=== PATIENT | male | born 1955 ===

== ENCOUNTER 2017-09-30 08:00 | Outpatient (RCR) | payer BC ==
[~2017-09-30 08:00] MED LIST: APIX5TAB PO; ATEN-1 PO; FLE100 FT; LISI20TA29 PO; METO50TA19 PO; MINO100C27 PO
[2017-09-30 08:09] VITALS: BP 124/93
--- NOTE | 2017-09-30 08:11 | ONC Progress Note - NP.Halsey ---
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 CBC was drawn today. Patient continues to do very well. Patient reports that due to the snow he has not been able to go up hiking but is getting prepared for nicer weather. He is remaining active and denies any difficulty with physical activity. Patient recently followed with primary care with cholesterol labs and a physical. Patient reports that he is doing well. Patient has not required any recent phlebotomy. Hematocrit today is 53.1. No changes in medications, these were recently refilled by primary care Problem List (1) Secondary erythrocytosis Oncology History He is a 62-year-old male who moved to [place] from [place]. He had a history of atrial fibrillation, polycythemia vera and hypertension, and he saw his primary care provider, Allison Constantino PA-C, who referred him to establish care for his polycythemia vera. Patient did not bring documentation of the confirmation of the diagnosis of polycythemia vera, but the patient had CBC results done on September 09, 2016 which showed white count 3.9, hemoglobin 19.6, hematocrit 57%, platelets 145,000. He has not been phlebotomized recently. His JAK2 mutation analysis came back negative for V617F mutation and Exon 12 mutation. His erythropoietin level was normal at 23, consistent with secondary erythrocytosis. Psychosocial History Social History The patient is with four children, three from his ex- and one from his recent . He is retired from [employer]. He quit smoking at age of [age] after eleven years of two packs a day. He drinks about a 6-pack of beer per week. Denies abuse of illicit drug Medications and Allergies Reported Medications Flecainide Acetate (FLECAINIDE ACETATE) 100 Mg Tab, 100 MG FT, TAB 06/30/17 Metoprolol Succinate (METOPROLOL SUCCINATE) 50 Mg Tab.er.24h, 1 TAB PO QDAY, TAB 06/30/17 Minocycline Hcl (MINOCYCLINE HCL) 100 Mg Capsule, 100 MG PO DAILY, CAPSULE 09/10/16 Lisinopril (LISINOPRIL) 20 Mg Tablet, 20 MG PO DAILY, TAB 09/10/16 Apixaban (ELIQUIS) 5 Mg Tablet, 5 MG PO BID 1/26/17 Review of System/Physical Exam Review of Systems All Systems Reviewed/Normal: Yes, Except as Noted Skin: Positive for Skin Rash (patient recently followed with dermatology and has a steroid ointment for discoloration of the skin on the right lower extremity.) Physical Exam Vital Signs Temperature: 98.6 Pulse: 74 BP Systolic: 125 BP Diastolic: 83 Respiratory Rate: 16 O2 SAT: 94 O2 Delivery: Height (inches) 68.21 Weight lb: Weight oz: Weight Kg (Allen): Pain: 0 ECOG Score: 0 General: Stable, Well Developed, Well Nourished, Not In Acute Distress HEENT: No Trauma Lungs: Clear to Auscultation Heart: Regular Rate, Regular Rhythm, No Gallops Abdomen: Other (bowel sounds are active) Extremities: No Cyanosis, No Clubbing, No Edema Psychiatric: Mood appears normal, Affect appears normal Skin: Other (hyperpigmentation in the right lower extremity probably related to poor venous stasis) Diagnostic Studies Diagnostic Studies Laboratory Item Value Date Time White Blood Count 6.3 k/uL 09/30/17 0807 Red Blood Count 5.80 M/uL H 09/30/17 0807 Hemoglobin 18.2 g/dL H 09/30/17 0807 Hematocrit 53.1 % H 09/30/17 0807 Assessment and Plan Assessment & Plan 1. Secondary erythrocytosis given the JAK2 mutation analysis came back negative and the erythropoietin level was normal at 23. Target for phlebotomy is hematocrit above or equal to 55%. Hematocrit is 53.1, hemoglobin is 18.2, white cell count is 6.3 today. No phlebotomy is planned today. Patient will follow again in 4 months with CBC at that time. 2. Atrial fibrillation on Eliquis. 3. Hypertension on treatment. Current medications with metoprolol and flecainide 4. Right lower extremity poor venous stasis. Patient is followed with dermatology and has a steroid cream to use as needed. Patient may benefit from compression stockings for further prevention. This was discussed today. PLAN 1. Continue followup in 4 months. 2. Consider phlebotomy if hematocrit is at or above 55%. 3. Patient is to return in three months with CBC. 4. Patient is to contact us for any new concerns or complaints. I personally spent a total of 20 minutes. Of that 15 minutes was counseling/ coordination of patient's care. See my note above for details. Copies to: ALLISON CONSTANTINO PA-C, NANCY J TIRE RECAPPING MACHINE OPERATOR-BC, ONC Sep 30, 2017 08:11
[2017-09-30 08:19] LABS: PLATELET COUNT, AUTOMATED 190 K/uL (150-450)
== END 2017-10-01 13:58 | disposition home or self-care (01) ==
LOC: SPU 08:00
PROVIDERS: ATTEND Internal Medicine Hematology
DX: D75.1 Secondary polycythemia (principal); I48.91 Unspecified atrial fibrillation; Z79.01 Long term (current) use of anticoagulants; I10 Essential (primary) hypertension
CPT/HCPCS: 36415; 85025; 99212

== ENCOUNTER 2018-03-04 08:00 | Outpatient (RCR) | payer BC, MEDICARE ==
[2018-03-04 08:23] VITALS: BP 135/93
[2018-03-04 08:25] VITALS: BP 138/93
[2018-03-04 08:26] LABS: PLATELET COUNT, AUTOMATED 170 K/uL (150-450)
--- NOTE | 2018-03-04 13:50 | [facility] ONCOLOGY NOTE ---
EVENT DATE: March 04, 2018 DIAGNOSIS 1. Secondary erythrocytosis. 2. Atrial fibrillation, on Eliquis. 3. Hypertension. CHIEF COMPLAINT Patient is here today for followup of his secondary erythrocytosis. HEMATOLOGY HISTORY The patient is a 63-year-old male who moved to [place] recently. The patient had a history of atrial fibrillation, polycythemia vera and hypertension, and he saw his primary care provider, Polina Constantino PA-C, who referred him to establish care for his polycythemia vera. I did not have any documentation of the confirmation of the diagnosis of polycythemia vera, but the patient had CBC results done on September 09, 2016 which showed white count 3.9, hemoglobin 19.6, hematocrit 57%, platelets 145,000. As per patient, his last phlebotomy session was about two weeks ago. He denies any constitutional symptoms. His JAK2 mutation analysis came back negative for V617F mutation and Exon 12 mutation. His erythropoietin level was normal at 23, consistent with secondary erythrocytosis. HISTORY OF PRESENT ILLNESS Patient is here today for followup of his secondary erythrocytosis. Patient is doing very well currently. He denies any complaints at the moment. PAST MEDICAL HISTORY 1. Polycythemia vera. 2. Atrial fibrillation. 3. Hypertension. PAST SURGICAL HISTORY Herniorrhaphy. FAMILY HISTORY Father with lung cancer. SOCIAL HISTORY The patient is with four children, three from his ex- and one from his recent . He is retired from [employer]. He quit smoking at age of [age] after eleven years of two packs a day. He drinks about a 6-pack of beer occasionally per week. Denies abuse of illicit drugs. CURRENT MEDICATIONS 1. Minocycline 100 mg daily. 2. Lisinopril 20 mg daily. 3. Eliquis 5 mg twice daily. 4. Atenolol 100 mg daily. ALLERGIES NSAIDS and ASPIRIN which cause skin rash. REVIEW OF SYSTEMS CONSTITUTIONAL: No appetite or weight change. No fever, chills or sweating. No recent infection. HEENT: Ears: No tinnitus or hearing problem. Nose: No nasal discharge or epistaxis. Throat: No sore throat or mouth ulcers. Eyes: No diplopia or visual changes. RESPIRATORY: No shortness of breath. No cough, expectoration or hemoptysis. CARDIOVASCULAR: No chest pain, orthopnea, or paroxysmal nocturnal dyspnea (PND) . No edema. No palpitations. GASTROINTESTINAL: No nausea or vomiting. No diarrhea or constipation. No change in bowel movements. No heartburn or swallowing difficulties. No abdominal pain. No jaundice. No hematemesis, melena or rectal bleeding. GENITOURINARY: No hematuria or dysuria. MUSCULOSKELETAL: No pain in the muscles, joints or bones. NEUROLOGICAL: No tingling or numbness in the hands or feet. No headaches or convulsions. HEMATOLOGIC/LYMPHATIC: No bleeding or easy bruising. No weakness or fatigued. No enlarged lymph nodes. SKIN: No skin rash or lumps. PSYCHIATRIC: No anxiety or depression. PHYSICAL EXAMINATION GENERAL: Looks stable. Well-developed, well-nourished, and in no acute distress. VITAL SIGNS: Blood pressure 135/93, pulse 69 per minute, respirations 16 per minute, temperature 98, pulse oximetry 93% on room air. HEENT: Head: Atraumatic. No sinus tenderness to palpation. Eyes: No icterus or conjunctivitis. Mouth and throat: No oral thrush or mucositis. NECK: Supple. No cervical or supraclavicular lymphadenopathy. LUNGS: Clear to auscultation and percussion bilaterally. HEART: Regular rate and rhythm. No gallops, murmurs, clicks or rubs. ABDOMEN: Soft and lax. No tenderness. No hepatosplenomegaly. No masses. EXTREMITIES: No cyanosis, clubbing or edema. LYMPHATICS: No peripheral lymphadenopathy. NEUROLOGICAL: Conscious, alert and oriented times three. No focal motor or sensory deficits. PSYCHIATRIC: Mood and affect appear normal. SKIN: No skin rash, bruise or purpuric eruption. DIAGNOSTIC DATA CBC showed white count 4.9, hemoglobin 17.8, hematocrit 51.5, platelets 170,000. ASSESSMENT 1. Secondary erythrocytosis, given that JAK2 mutation analysis came back negative and the erythropoietin level was normal at 23. The target for phlebotomy is hematocrit above 55%. His current hematocrit is 51.5%. I am planing to continue followup. I will see him again in four months with CBC. I am planning to phlebotomize 500 mL blood whenever his hematocrit is above 55%. 2. Atrial fibrillation on Eliquis. 3. Hypertension on treatment. PLAN 1. Continue followup. 2. Consider phlebotomy if hematocrit is above 55%. 3. Patient is to return in four months with CBC. 4. Patient to contact us for any new concerns or complaints. ANOOP
== END 2018-03-11 09:35 | disposition home or self-care (01) ==
LOC: SPU 08:00
PROVIDERS: ATTEND Internal Medicine Hematology
DX: D75.1 Secondary polycythemia (principal); I48.91 Unspecified atrial fibrillation; I10 Essential (primary) hypertension; Z79.01 Long term (current) use of anticoagulants; Z79.899 Other long term (current) drug therapy; Z87.891 Personal history of nicotine dependence
CPT/HCPCS: 36415; 85025; G0463; 99212

== ENCOUNTER 2018-06-30 08:00 | Outpatient (RCR) | payer MEDICARE ==
[2018-06-30 08:21] VITALS: BP 128/82
[2018-06-30 08:21] LABS: PLATELET COUNT, AUTOMATED 169 K/uL (150-450)
[2018-06-30 09:03] VITALS: BP 144/82
--- NOTE | 2018-06-30 09:55 | [facility] ONCOLOGY NOTE ---
EVENT DATE: June 30, 2018 DIAGNOSIS 1. Secondary erythrocytosis. 2. Atrial fibrillation, on Eliquis. 3. Hypertension. CHIEF COMPLAINT Patient is here today for followup of his secondary erythrocytosis. HEMATOLOGY HISTORY The patient is a 63-year-old male who moved to [place] recently. The patient had a history of atrial fibrillation, polycythemia vera and hypertension, and he saw his primary care provider, Polina Constantino PA-C, who referred him to establish care for his polycythemia vera. I did not have any documentation of the confirmation of the diagnosis of polycythemia vera, but the patient had CBC results done on September 09, 2016 which showed white count 3.9, hemoglobin 19.6, hematocrit 57%, platelets 145,000. As per patient, his last phlebotomy session was about two weeks ago. He denies any constitutional symptoms. His JAK2 mutation analysis came back negative for V617F mutation and Exon 12 mutation. His erythropoietin level was normal at 23, consistent with secondary erythrocytosis. HISTORY OF PRESENT ILLNESS Patient is here today for followup of his secondary erythrocytosis. He is doing fine currently except for some pain in his left knee, resolved with Tylenol. PAST MEDICAL HISTORY 1. Polycythemia vera. 2. Atrial fibrillation. 3. Hypertension. PAST SURGICAL HISTORY Herniorrhaphy. FAMILY HISTORY Father with lung cancer. SOCIAL HISTORY The patient is with four children, three from his ex- and one from his recent . He is retired from [employer]. He quit smoking at age of [age] after eleven years of two packs a day. He drinks about a 6-pack of beer occasionally per week. Denies abuse of illicit drugs. CURRENT MEDICATIONS 1. Minocycline 100 mg daily. 2. Lisinopril 20 mg daily. 3. Eliquis 5 mg twice daily. 4. Atenolol 100 mg daily. ALLERGIES NSAIDS and ASPIRIN which cause skin rash. REVIEW OF SYSTEMS CONSTITUTIONAL: No appetite or weight change. No fever, chills or sweating. No recent infection. HEENT: Ears: No tinnitus or hearing problem. Nose: No nasal discharge or epistaxis. Throat: No sore throat or mouth ulcers. Eyes: No diplopia or visual changes. RESPIRATORY: No shortness of breath. No cough, expectoration or hemoptysis. CARDIOVASCULAR: No chest pain, orthopnea, or paroxysmal nocturnal dyspnea (PND). No edema. No palpitations. GASTROINTESTINAL: No nausea or vomiting. No diarrhea or constipation. No change in bowel movements. No heartburn or swallowing difficulties. No abdominal pain. No jaundice. No hematemesis, melena or rectal bleeding. GENITOURINARY: No hematuria or dysuria. MUSCULOSKELETAL: Patient has pain in his left knee. NEUROLOGICAL: No tingling or numbness in the hands or feet. No headaches or convulsions. HEMATOLOGIC/LYMPHATIC: No bleeding or easy bruising. No weakness or fatigued. No enlarged lymph nodes. SKIN: No skin rash or lumps. PSYCHIATRIC: No anxiety or depression. PHYSICAL EXAMINATION GENERAL: Looks stable. Well-developed, well-nourished, and in no acute distress. VITAL SIGNS: Blood pressure 127/82, pulse 78 per minute, respirations 16 per minute, temperature 98, pulse oximetry 93% on room air. HEENT: Head: Atraumatic. No sinus tenderness to palpation. Eyes: No icterus or conjunctivitis. Mouth and throat: No oral thrush or mucositis. NECK: Supple. No cervical or supraclavicular lymphadenopathy. LUNGS: Clear to auscultation and percussion bilaterally. HEART: Regular rate and rhythm. No gallops, murmurs, clicks or rubs. ABDOMEN: Soft and lax. No tenderness. No hepatosplenomegaly. No masses. EXTREMITIES: No cyanosis, clubbing or edema. LYMPHATICS: No peripheral lymphadenopathy. NEUROLOGICAL: Conscious, alert and oriented times three. No focal motor or sensory deficits. PSYCHIATRIC: Mood and affect appear normal. SKIN: No skin rash, bruise or purpuric eruption. DIAGNOSTIC DATA CBC showed white count 5,000, hemoglobin 18.3, hematocrit 54.1, platelets 169,000. ASSESSMENT 1. Secondary erythrocytosis given that JAK2 mutation analysis came back negative and the erythropoietin level was normal at 23. The target for phlebotomy is hematocrit above 55%. His current hematocrit is 54.1%, on the rise. I am planing to phlebotomize 500 mL this time and I will see him again in six months with CBC at that time. 2. Atrial fibrillation, on Eliquis. 3. Hypertension, on treatment. PLAN 1. Phlebotomize 500 mL of blood. 2. Patient to return in six months with CBC. 3. Patient to contact us for any new concerns or complaints. MTDD
== END 2018-07-13 11:08 | disposition home or self-care (01) ==
LOC: SPU 08:00
PROVIDERS: ATTEND Internal Medicine Hematology
DX: D75.1 Secondary polycythemia (principal); I48.91 Unspecified atrial fibrillation; I10 Essential (primary) hypertension; Z79.01 Long term (current) use of anticoagulants; Z79.899 Other long term (current) drug therapy; Z87.891 Personal history of nicotine dependence
CPT/HCPCS: 85025; 99195; G0463; 99212

== ENCOUNTER 2018-12-27 08:18 | Outpatient (RCR) | payer MEDICARE ==
[2018-12-27 09:27] VITALS: BP 111/81
[2018-12-27 09:34] LABS: PLATELET COUNT, AUTOMATED 177 K/uL (150-450)
--- NOTE | 2018-12-27 12:47 | ONCOLOGY FOLLOW UP NOTE ---
EVENT DATE: December 27, 2018 DIAGNOSES 1. Secondary erythrocytosis. 2. Atrial fibrillation, on Eliquis. 3. Hypertension. CHIEF COMPLAINT Patient is here today for followup of his secondary erythrocytosis. HEMATOLOGY HISTORY The patient is a 63-year-old male who moved to [place] recently. The patient had a history of atrial fibrillation, polycythemia vera and hypertension, and he saw his primary care provider, Polina Constantino PA-C, who referred him to establish care for his polycythemia vera. I did not have any documentation of the confirmation of the diagnosis of polycythemia vera, but the patient had CBC results done on September 09, 2016 which showed white count 3.9, hemoglobin 19.6, hematocrit 57%, platelets 145,000. JAK2 mutation analysis came back negative for V617F mutation and Exon 12 mutation. Erythropoietin level was normal at 23, consistent with secondary erythrocytosis. He was last seen in June, six months ago. Patient's last phlebotomy was done in June 2018. HISTORY OF PRESENT ILLNESS Mr. Chand is here today for ongoing followup for his secondary erythrocytosis. He follows up semiannually. He reports that overall he is doing well. He last had a phlebotomy six months ago, June 2018. He reports that typically he consent when he needs phlebotomy as he usually becomes much more tired and sluggish when his hematocrit levels increase. He remains on Eliquis twice daily for his atrial fibrillation. He reports recent cardiac ablation approximately three months ago with Dr. Lyles in Cardiology. Patient reports that since that time from a hematologic standpoint has been doing well, although apparently he did have significant hoarseness after that surgery, which took about three months to resolve. Lastly, he has been having some GI issues ever since his ablation. He tells me that he eats much smaller amounts and then often becomes bloated. He denies difficulty swallowing or drinking. He will be seeing Dr. Garcia later this week, on , for evaluation and likely colonoscopy will be ordered at that time. He has a bowel emptying study scheduled for later this Wednesday. He hasn't had any bleeding complications. PAST MEDICAL HISTORY 1. Polycythemia vera. 2. Atrial fibrillation. 3. Hypertension. PAST SURGICAL HISTORY 1. Herniorrhaphy. 2. Cardiac ablation, September 2018. FAMILY HISTORY Father with lung cancer. SOCIAL HISTORY The patient is with four children, three from his ex- and one from his recent . He is retired from [employer] and [employer]. He quit smoking at age of [age] after eleven years of two packs a day. He drinks about a 6-pack of beer occasionally per week. Denies abuse of illicit drugs. CURRENT MEDICATIONS 1. Minocycline 100 mg daily. 2. Lisinopril 20 mg daily. 3. Eliquis 5 mg twice daily. 4. Atenolol 100 mg daily. ALLERGIES NSAIDS and ASPIRIN which cause skin rash. REVIEW OF SYSTEMS CONSTITUTIONAL: Patient denies any recent fevers, chills or night sweats. No recent infections. He reports that he feels great. HEENT: No vision changes. No tinnitus. No mouth sores. No dysphagia or odynophagia. RESPIRATORY: No shortness of breath. No cough, sputum production or hemoptysis. No pleuritic chest pain. CARDIOVASCULAR: No chest pain. No syncope or presyncope. He reports that he has not had any atrial fibrillation episodes and reports good compliance with Eliquis. GASTROINTESTINAL: No abdominal pain but he has had significant bloating since his cardiac ablation. No nausea or vomiting. He reports difficulty eating and becomes bloated and full quite easily. He denies any diarrhea, constipation or changes in bowels. He denies any bright red blood per rectum or melena. Last colonoscopy per patient was approximately 15 years ago in [place]. He tells me that he had normal findings with the exception of a parasite. He is not sure what he was given or diagnosed with. Appetite is decreased but he reports this is usual for him. GENITOURINARY: No dysuria, hematuria or genitourinary skin changes. MUSCULOSKELETAL: He has some degenerative-type pains, largely stable. NEUROLOGICAL: No headaches or seizure activity. No numbness or tingling. SKIN: No rash. No generalized pruritus. No suspicious lumps or bumps. PSYCHIATRIC: No anxiety, severe depression, suicidal or homicidal ideation. ENDOCRINE: No head or cold intolerance. Mr. Chand reports that his energy level is excellent. He feels quite well. PHYSICAL EXAMINATION VITAL SIGNS: T 97.8, P 62, R 16, BP 111/81, oxygen saturation 96% room air. GENERAL: This is a pleasant 53-year old gentleman who appears well-hydrated, well-nourished, and is in no acute distress. HEENT: Atraumatic, normocephalic. EYES: Sclerae anicteric. ENT/MOUTH: Moist mucous membranes. No mucositis. NECK: Supple. No lymphadenopathy. LUNGS: Clear to auscultation bilaterally. No focal findings. HEART: Regular rate and rhythm. No ectopy. No current atrial fibrillation. ABDOMEN: Soft, nontender, minimally distended. Bowel sounds positive x4. No organomegaly. EXTREMITIES: No clubbing, cyanosis or edema. NEUROLOGICAL: Patient is awake, alert and oriented x3. No focal motor or sensory deficits. PSYCHIATRIC: Mood and affect are appropriate. DERM: No rash, petechiae or purpura. LABORATORY CBC today: WBC 4.7, ANC 2.1, hemoglobin 17.5, hematocrit 52.1%, platelets 177,000. IMPRESSION AND PLAN This is a pleasant 63-year old male with a history of secondary erythrocytosis, JAK2 mutation analysis negative. Erythropoietin level was normal at workup at 23. We are using a target hematocrit for phlebotomy above 55%. His last phlebotomy was approximately six months ago and he is feeling quite well. He has not had any bleeding complications and remains on 'Eliquis for his atrial fibrillation. Today, his hematocrit is just at 52%. 1. We will plan to hold off on phlebotomy for today. 2. Patient will return to clinic in six months for followup, repeat CBC and will likely need phlebotomy at that time. He will contact us sooner as he does notice decreases in energy related to increases in his hematocrit. He may followup sooner if needed. 3. Patient was instructed to follow up with his PCP later this week for evaluation regarding current GI symptomatology. He was instructed to keep his followup for his bowel emptying study, which he has scheduled for Wednesday. 4. We will see the patient back in six months. ANOOP
[2018-12-29] MEDS ORDERED: FLUT16SP19 NS (14:37)
[2018-12-29] MEDS ORDERED: MINO100C27 PO (14:37)
[2018-12-29] MEDS ORDERED: PANT40TA65 PO (14:37)
[2018-12-29] MEDS ORDERED: CLOB30CR3 TP (14:37)
[2019-01-03] MEDS ORDERED: CEFPR500PT PO (15:20)
[2019-01-18] MEDS ORDERED: TRAM-420 PO (08:48)
[2019-01-18] MEDS ORDERED: PANT40TA65 PO (08:55)
[2019-01-18] MEDS ORDERED: ATOR20TA65 PO (08:55)
== END 2019-01-16 13:04 | disposition home or self-care (01) ==
LOC: SPU 08:18
PROVIDERS: ATTEND Internal Medicine Hematology
DX: D75.1 Secondary polycythemia (principal); I48.91 Unspecified atrial fibrillation; I10 Essential (primary) hypertension; Z79.01 Long term (current) use of anticoagulants; Z79.899 Other long term (current) drug therapy; Z87.891 Personal history of nicotine dependence
CPT/HCPCS: 36415; 85025

== ENCOUNTER → 2018-12-30 | Outpatient (CLI) | payer MEDICARE ==
[~2018-12-30] MED LIST changes: +CEFPR500PT PO; +CLOB30CR3 TP; +FLUT16SP19 NS; +PANT40TA65 PO
== END ==
LOC: NUC 01:12
PROVIDERS: ATTEND Internal Medicine Clinical Cardiac Electrophysiology
DX: R68.81 Early satiety (principal); Z87.891 Personal history of nicotine dependence

== ENCOUNTER → 2018-12-30 | Outpatient (CLI) | payer MEDICARE ==
[2018-12-30 07:59] LABS: PLATELET COUNT, AUTOMATED 162 K/uL (150-450)
[2018-12-30 08:55] LABS: LDL CHOLESTEROL 137 mg/dl
--- NOTE | 2018-12-30 13:22 | RADIOLOGY IMAGING REPORT ---
FACILITY: [facility] PATIENT NAME: Abhi Chand : 1955 MR: [id number] V: [id number] EXAM DATE: ORDERING PHYSICIAN: LAURA MIRELES TECHNOLOGIST: Location: [facility] [place] Patient: Abhi Chand : 1955 Visit/Account:[id number] Date of Sevice: 12/30/2018 Exam type: CHEST PA LAT History: personal history of smoking, morning cough, family history of lung cancer Comparison: None. Findings: The lungs are free of acute effusions, infiltrates or edema. Cardiac silhouette is normal in size. There are minimal spondylotic changes of the thoracic spine IMPRESSION: 1. No acute cardiopulmonary process is seen Report Dictated By: Naz Pascual MD at 12/30/2018 1:12 PM Report E-Signed By: Naz Pascual MD at 12/30/2018 1:17 PM WSN:[email or web address]
--- NOTE | 2018-12-30 14:53 | RADIOLOGY IMAGING REPORT ---
FACILITY: [facility] PATIENT NAME: Abhi Chand : 1955 MR: [id number] V: [id number] EXAM DATE: ORDERING PHYSICIAN: LAURA MIRELES TECHNOLOGIST: Location: [facility] [place] Patient: Abhi Chand : 1955 Visit/Account:[id number] Date of Sevice: 12/30/2018 Exam type: GASTRIC EMPTYING History: Early satiety Comparison: None. Findings: The patient received 1.8 mCi of technetium 99m sulfur colloid in 4 ounces of egg beaters with two sli kayleigh of toast in 4 ounces of water consumed orally within 10 minutes. Multiple anterior and posterior gamma camera images were obtained over the abdomen immediately following the medial and one hour, tw o hours, three hours and four hours following the medial ingestion. Time/activity curve was generate d. At four hours 100% of the gastric contents had emptied. The T1 half gastric imaging time was 126 minutes IMPRESSION: 1. At four hours 100% of gastric contents had emptied Report Dictated By: Naz Pascual MD at 12/30/2018 2:45 PM Report E-Signed By: Naz Pascual MD at 12/30/2018 2:48 PM WSN:[email or web address]
== END ==
LOC: LAB 07:27
PROVIDERS: ATTEND Internal Medicine
DX: I48.91 Unspecified atrial fibrillation (principal); K21.9 Gastro-esophageal reflux disease without esophagitis; R49.0 Dysphonia; Z87.891 Personal history of nicotine dependence; D75.1 Secondary polycythemia; R63.4 Abnormal weight loss; I10 Essential (primary) hypertension
CPT/HCPCS: 36415; 71046; 78264; 81001; 82150; 82728; 83540; 83550; 83690; 84443; 85025; A9541; 82040; 82247; 82310; 82374; 82435; 82465; 82565; 82947; 83718; 84075; 84132; 84155; 84295; 84450; 84460; 84478; 84520

== ENCOUNTER → 2019-01-06 | Outpatient (CLI) | payer MEDICARE | LOC: RESP 02:25 | PROVIDERS: ATTEND Internal Medicine | DX: J98.4 Other disorders of lung (principal) | CPT/HCPCS: 94060; 94726; 94729 ==